=== PATIENT | female | born 1995 | race Two or more races ===

== ENCOUNTER 2023-07-31 23:36 | Emergency (ER) | payer MEDICAID ==
[~2023-07-31] VITALS: Ht 162.6 cm; Wt 91.6 kg
[2023-08-01 00:20] VITALS: TEMP 98
[2023-08-01 00:33] LABS: BASOPHILS % (AUTO) 0.4 % (0.0-2.0); EOSINOPHILS # (AUTO) 0.1 K/uL (0.0-0.7); EOSINOPHILS % (AUTO) 1.6 % (0.0-6.0); HEMATOCRIT 39 % (33-45); HEMOGLOBIN 13.3 g/dL (11.5-14.8); LYMPHOCYTES # (AUTO) 2.2 K/uL (0.8-4.8); LYMPHOCYTES % (AUTO) 27.7 % (20.0-44.0); MEAN CORPUSCULAR HEMOGLOBIN 31 PG (26.0-33.0); MEAN CORPUSCULAR HGB CONC 35 g/dl (31.0-36.0); MEAN CORPUSCULAR VOLUME 89 fL (82-100); MONOCYTES # (AUTO) 0.5 K/uL (0.1-1.30); MONOCYTES % (AUTO) 6.7 % (2.0-12.0); NEUTROPHILS % (AUTO) 63.6 % (43.0-81.0); PLATELET COUNT (AUTO) 262 K/uL (150-450); RED BLOOD CELL COUNT(AUTO) 4.32 MIL/uL (4.0-5.2); RED CELL DISTRIBUTION WIDTH 13.2 % (11.5-15.0); WHITE BLOOD COUNT (AUTO) 7.9 K/uL (4.3-11.0)
[2023-08-01] MEDS ORDERED: ONDANSETRON HCL/PF 4 MG/2 ML VIAL ONE (00:33)
[2023-08-01] MEDS ORDERED: KETOROLAC TROMETHAMINE 15 MG/ML VIAL ONE (00:33)
[2023-08-01] MEDS: IV NS 0.9% 1,000 ML BAG IV ONE (00:38)
[2023-08-01] MEDS: ONDANSETRON HCL/PF 4 MG/2 ML VIAL IVP ONE (00:40)
[2023-08-01] MEDS: KETOROLAC TROMETHAMINE 15 MG/ML VIAL IV ONE (00:42)
[2023-08-01 00:45] LABS: CALCIUM, SERUM 8.8 mg/dL (8.5-10.1); CREATININE 0.7 mg/dL (0.6-1.3); POTASSIUM 3.6 mmol/L (3.5-5.1)
[2023-08-01 00:49] LABS: PREGNANCY TEST URINE QUAL NEGATIVE (NEGATIVE)
[2023-08-01 00:50] LABS: ALBUMIN 3.7 g/dL (3.4-5.0); APPEARANCE,URINE CLEAR (CLEAR); BILIRUBIN,DIRECT 0.1 mg/dL (0.0-0.2); BILIRUBIN,TOTAL 0.4 mg/dL (0.2-1.0); BILIRUBIN,URINE NEGATIVE (NEGATIVE); BLOOD, URINE NEGATIVE Ery/uL (NEGATIVE); COLOR,URINE YELLOW (YELLOW); KETONES,URINE NEGATIVE (NEGATIVE); LEUKOCYTE ESTERASE ,URINE NEGATIVE (NEGATIVE); NITRITE, URINE NEGATIVE (NEGATIVE); PROTEIN,URINE TRACE mg/dl (NEGATIVE); TOTAL PROTEIN, SERUM 8.4 g/dL (6.4-8.2); UGLUCOSE TRACE mg/dL (NEGATIVE)
[2023-08-01] MEDS ORDERED: IOHEXOL-300 100 ML VIAL IV ONE (00:51)
[2023-08-01] MEDS ORDERED: CT SWABBABLE VALVE TRANS SET 1 EA INFUS.SET MC ONE (00:51)
[2023-08-01] MEDS ORDERED: IV NS 0.9% 250 ML IV ONE (00:51)
[2023-08-01 01:29] VITALS: BP 108/70; O2SAT 100
== END 2023-08-01 07:07 | disposition home or self-care (01) ==
LOC: ER 23:41
DX: R10.30 Lower abdominal pain, unspecified (principal); R11.2 Nausea with vomiting, unspecified
CPT/HCPCS: 99285; 74177; 96374; 96361; 96375; 85025; 80048; 83690; 80076; 84703; 81003; 36415; J2405; J7030; J7050; Q9967; J1885